=== PATIENT | male | born 1980 | race Caucasian/White ===

== ENCOUNTER 2017-11-18 11:16 | Emergency (ER) | payer OTHER ==
[~2017-11-18] VITALS: Ht 175.3 cm; Wt 60.0 kg
[~2017-11-18 11:16] MED LIST: NO HOME MEDS
[2017-11-18 12:13] LABS: CLARITY,URINE CLOUDY (Clear); GLUCOSE, URINE NEGATIVE (Neg); KETONES,URINE NEGATIVE (Neg); LEUKOCYTE ESTERASE ,URINE NEGATIVE (Neg); NITRITES, URINE NEGATIVE (Neg); OCCULT BLOOD,URINE LARGE (Neg); PROTEIN,URINE 30 mg/dl (Neg); UROBILINOGEN,URINE 0.2 E.U/dL (0.2-1.0)
[2017-11-18 12:15] LABS: COLOR,URINE Dark Yellow (Yellow); UA COLLECTION TYPE CLN CATCH MIDSTREAM
[2017-11-18] MEDS ORDERED: ketorolac trometh inj. 60 MG/2 ML VIAL IM ONE (12:25)
[2017-11-18 12:26] LABS: BACTERIA,URINE 2+ /HPF (Neg); MUCUS STRANDS FEW /LPF (Neg); RBC,URINE TNTC /HPF (0-2); SQUAMOUS EPITHELIAL CELL,UR FEW /LPF (FEW)
[2017-11-18 12:31] VITALS: BP 124/85
[2017-11-18 13:09] LABS: MEAN PLATELET VOLUME 10.1 FL (7.4-10.4); PLATELET COUNT 165 X10'3 (140-440); WHITE BLOOD COUNT 6.9 X10'3 (4.5-11.0)
[2017-11-18 13:12] LABS: ALBUMIN 2.8 G/DL (3.4-5.0); ALKALINE PHOSPHATASE 366 IU/L (46-116); BILIRUBIN,TOTAL 1.9 MG/DL (0.1-1.0); BLOOD UREA NITROGEN 24 MG/DL (7-18); BUN/CREATININE RATIO 20.9 (5.4-32.0); CREATININE 1.15 MG/DL (0.60-1.10); LIPASE 78 U/L (73-393); TOTAL CARBON DIOXIDE 20.9 MMOL/L (24-32); eGFR 72 ML/MIN
[2017-11-18] MEDS ORDERED: HYDR-568 PO (13:19)
[2017-11-18] MEDS ORDERED: IBUP-1984 PO (13:19)
[2017-11-18 13:40] LABS: HEMATOCRIT 32.2 % (42.0-52.0); HEMOGLOBIN 11.3 g/dl (14.0-17.9); MEAN CORPUSCULAR HEMOGLOBIN 32.9 PG (27.0-31.0); MEAN CORPUSCULAR HGB CONC 35.1 % (33.0-36.5); MEAN CORPUSCULAR VOLUME 93.9 FL (78-98); RED BLOOD COUNT 3.43 X10'6 (4.70-6.10)
[2017-11-18 13:41] LABS: RED CELL DISTRIBUTION WIDTH 13.6 % (11.5-14.5)
[2017-11-18 13:52] LABS: ALANINE AMINOTRANSFERASE 111 U/L (12-78); ALBUMIN/GLOBULIN RATIO 0.9 (1.1-1.5); ANION GAP 16 (8-16); ASPARTATE AMINO TRANSFERASE 126 U/L (10-37); CHLORIDE 101 MMOL/L (99-107); GLUCOSE 103 MG/DL (70-104); POTASSIUM 4.1 MMOL/L (3.5-5.1); SODIUM 138 MMOL/L (135-145); TOTAL PROTEIN 5.8 G/DL (6.4-8.2)
[2017-11-18 17:44] LABS: TOTAL CELLS COUNTED 100
[2017-11-18 17:46] LABS: PLATELET ESTIMATE NORMAL
== END 2017-11-18 14:07 | disposition home or self-care (01) ==
LOC: ER 11:16
DX: N20.0 Calculus of kidney (principal); Z79.899 Other long term (current) drug therapy
CPT/HCPCS: 36415; 74176; 80053; 81001; 83690; 85025; 87088; 96372; 99285; J1885

== ENCOUNTER 2023-10-16 15:26 | Emergency (ER) | payer BC, OTHER ==
[~2023-10-16] VITALS: Ht 172.7 cm; Wt 58.1 kg
[2023-10-16 15:45] LABS: BILIRUBIN,URINE SMALL (Neg); CLARITY,URINE SLIGHTLY CLOUDY (Clear); COLOR,URINE YELLOW (Yellow); GLUCOSE, URINE NEGATIVE (Neg); KETONES,URINE TRACE mg/dl (Neg); LEUKOCYTE ESTERASE ,URINE NEGATIVE (Neg); NITRITES, URINE NEGATIVE (Neg); OCCULT BLOOD,URINE LARGE (Neg); PROTEIN,URINE 30 mg/dl (Neg); UROBILINOGEN,URINE 0.2 E.U/dL (0.2-1.0)
[2023-10-16 15:51] LABS: BACTERIA,URINE FEW /HPF (Neg); MUCUS STRANDS FEW /LPF (Neg); RBC,URINE TNTC /HPF (0-2); SQUAMOUS EPITHELIAL CELL,UR FEW /LPF (FEW); UA COLLECTION TYPE CLN CATCH MIDSTREAM
[2023-10-16 16:13] LABS: BASOPHILS # (AUTO) 0.1 X10'3 (0-0.2); BASOPHILS % (AUTO) 0.8 % (0-1); EOSINOPHILS % (AUTO) 0.2 % (0-6); HEMOGLOBIN 14.2 g/dl (14.0-17.9); LYMPHOCYTES # (AUTO) 0.9 X10'3 (1.1-4.8); LYMPHOCYTES % (AUTO) 6.8 % (21-51); MEAN CORPUSCULAR HEMOGLOBIN 33.9 PG (27.0-31.0); MEAN CORPUSCULAR HGB CONC 34.6 g/dL (33.0-36.5); MEAN CORPUSCULAR VOLUME 97.9 FL (78-98); MEAN PLATELET VOLUME 10.9 FL (7.4-10.4); MONOCYTES # (AUTO) 0.6 X10'3 (0-0.9); NEUTROPHILS # (AUTO) 11.2 X10'3 (1.8-7.7); NEUTROPHILS % (AUTO) 87.2 % (42-75); PLATELET COUNT 133 X10'3 (140-440); RED BLOOD COUNT 4.19 X10'6 (4.70-6.10); RED CELL DISTRIBUTION WIDTH 12.9 % (11.5-14.5); WHITE BLOOD COUNT 12.8 X10'3 (4.5-11.0)
[2023-10-16 16:22] LABS: ALANINE AMINOTRANSFERASE 31 U/L (12-78); ALBUMIN/GLOBULIN RATIO 1.5 (1.1-1.5); ALKALINE PHOSPHATASE 101 IU/L (46-116); ANION GAP 10 (8-16); ASPARTATE AMINO TRANSFERASE 24 U/L (10-37); BILIRUBIN,TOTAL 0.5 MG/DL (0.1-1.0); BLOOD UREA NITROGEN 11 MG/DL (7-18); BUN/CREATININE RATIO 10.6 (10.0-20.0); CALCIUM 8.7 MG/DL (8.5-10.1); CHLORIDE 103 MMOL/L (99-107); CREATININE 1.04 MG/DL (0.60-1.10); GLUCOSE 101 MG/DL (70-104); LIPASE 26 U/L (16-77); POTASSIUM 3.4 MMOL/L (3.5-5.1); SODIUM 138 MMOL/L (135-145); TOTAL PROTEIN 6.7 G/DL (6.4-8.2); eCRCL 77 ML/MIN; eGFR 79 ML/MIN
[2023-10-16] MEDS: tamsulosin 0.4mg capsule PO ONE (17:35)
[2023-10-16] MEDS: ketorolac trometh 30MG/ML vial 30 MG/ML VIAL IV ONE (17:35)
[2023-10-16] MEDS: normal saline 1000ml 1,000 ML IV ONE (17:43)
[2023-10-16] MEDS ORDERED: ONDA-103 PO (17:45)
[2023-10-16] MEDS ORDERED: HYDR-3972 PO (17:45)
[2023-10-16] MEDS ORDERED: FLO0.4C PO (17:45)
[2023-10-16] MEDS ORDERED: IBUP-1986 PO (17:45)
[2023-10-16] MEDS: ketorolac trometh 15mg/ml vial 15 MG/ML ML IV ONE (18:55)
[2023-10-16] MEDS: HYDROcodone/acetaminophen 10/325mg tab PO ONE (18:56)
[2023-10-16 19:12] VITALS: BP 135/90; PULSE 67; RESP 14; TEMP 98.5; O2SAT 98
[2023-10-17] MEDS ORDERED: SULF1TAB49 PO (10:33)
--- NOTE | 2023-10-18 11:20 | NUR ---
PT CALLED STATING THAT THE RX HE RECEIVED ON 10/16/23 WAS SENT TO [facility]; HOWEVER, [facility] SYSTEM WAS DOWN AND THE RX x5 WAS NOT RECEIVED. PT'S ABX AND IBUPROFEN WAS ELECTRONICALLY SENT TO [facility] [address] BUT THEY DID NOT RECEIVED THE REMAINING 3 RX. [facility] [address] WAS CALLED AND THE RX FOR FLOMAX 0.4MG; 1 PO DAILY x30 DAYS AND ZOFRAN 4 MG, 1 PO Q4HRS PRN FOR N/V FOR 5 DAYS #18 WAS CALLED IN. PT WAS TALLED AND INFORMED THAT HIS REMAINING RX WAS CALLED TO [facility] [address] REQUESTED; HOWEVER, THE NORCO 10/325MG COULD NOT BE CALLED IN DUE TO IT BEING A NARCOTIC AND THAT NARCOTICS HAVE TO BE e-TRANSMITTED, AND THAT [facility] DOES NOT CARR[facility] NORCO 10/325MG CURRENTLY. PT STATED UNDERSTANDING.
== END 2023-10-16 19:18 | disposition home or self-care (01) ==
LOC: ER 15:27
DX: N20.0 Calculus of kidney (principal); N39.0 Urinary tract infection, site not specified; Z79.1 Long term (current) use of non-steroidal anti-inflammatories (NSAID); Z79.2 Long term (current) use of antibiotics
CPT/HCPCS: 36415; 74176; 80053; 81001; 83690; 85025; 87088; 96361; 96374; 96376; 99285; J1885; J7030; 74178

== ENCOUNTER 2023-12-13 09:11 | Emergency (ER) | payer BC ==
[~2023-12-13] VITALS: Ht 172.7 cm; Wt 62.7 kg
[~2023-12-13 09:11] MED LIST changes: +FLO0.4C PO; +HYDR-3972 PO; +IBUP-1986 PO; +ONDA-103 PO; +SULF1TAB49 PO
[2023-12-13 10:46] LABS: BASOPHILS # (AUTO) 0.1 X10'3 (0-0.2); BASOPHILS % (AUTO) 0.8 % (0-1); EOSINOPHILS # (AUTO) 0.1 X10'3 (0-0.9); EOSINOPHILS % (AUTO) 2.1 % (0-6); HEMATOCRIT 43.1 % (42.0-52.0); HEMOGLOBIN 14.6 g/dl (14.0-17.9); LYMPHOCYTES # (AUTO) 1.3 X10'3 (1.1-4.8); LYMPHOCYTES % (AUTO) 19.7 % (21-51); MEAN CORPUSCULAR HGB CONC 33.9 g/dL (33.0-36.5); MEAN CORPUSCULAR VOLUME 97.4 FL (78-98); MEAN PLATELET VOLUME 10.5 FL (7.4-10.4); MONOCYTES # (AUTO) 0.5 X10'3 (0-0.9); NEUTROPHILS # (AUTO) 4.8 X10'3 (1.8-7.7); NEUTROPHILS % (AUTO) 70.4 % (42-75); PLATELET COUNT 158 X10'3 (140-440); RED BLOOD COUNT 4.43 X10'6 (4.70-6.10); RED CELL DISTRIBUTION WIDTH 12.9 % (11.5-14.5); WHITE BLOOD COUNT 6.8 X10'3 (4.5-11.0)
[2023-12-13 11:10] LABS: ALANINE AMINOTRANSFERASE 48 U/L (12-78); ALBUMIN 4.3 G/DL (3.4-5.0); ALBUMIN/GLOBULIN RATIO 1.4 (1.1-1.5); ALKALINE PHOSPHATASE 144 IU/L (46-116); ANION GAP 8 (8-16); ASPARTATE AMINO TRANSFERASE 44 U/L (10-37); BILIRUBIN,TOTAL 0.9 MG/DL (0.1-1.0); BLOOD UREA NITROGEN 13 MG/DL (7-18); BUN/CREATININE RATIO 13.3 (10.0-20.0); CALCIUM 9.3 MG/DL (8.5-10.1); CHLORIDE 103 MMOL/L (99-107); CREATININE 0.98 MG/DL (0.60-1.10); GLUCOSE 98 MG/DL (70-104); POTASSIUM 3.8 MMOL/L (3.5-5.1); SODIUM 138 MMOL/L (135-145); TOTAL CARBON DIOXIDE 27.2 MMOL/L (24-32); TOTAL PROTEIN 7.4 G/DL (6.4-8.2); eCRCL 88 ML/MIN; eGFR 84 ML/MIN
[2023-12-13 12:13] LABS: BILIRUBIN,URINE SMALL (Neg); CLARITY,URINE SLIGHTLY CLOUDY (Clear); COLOR,URINE YELLOW (Yellow); GLUCOSE, URINE NEGATIVE (Neg); KETONES,URINE TRACE mg/dl (Neg); LEUKOCYTE ESTERASE ,URINE SMALL (Neg); NITRITES, URINE NEGATIVE (Neg); OCCULT BLOOD,URINE SMALL (Neg); PROTEIN,URINE 30 mg/dl (Neg); UROBILINOGEN,URINE 0.2 E.U/dL (0.2-1.0)
[2023-12-13 12:19] LABS: UA COLLECTION TYPE CLN CATCH MIDSTREAM
[2023-12-13 12:21] LABS: MUCUS STRANDS MODERATE /LPF (Neg); SQUAMOUS EPITHELIAL CELL,UR FEW /LPF (FEW); WBC,URINE TNTC /HPF (0-4)
[2023-12-13 12:23] LABS: AMORPHOUS URATES 1+; BACTERIA,URINE 1+ /HPF (Neg)
[2023-12-13] MEDS ORDERED: PHEN-716 PO (12:35)
[2023-12-13] MEDS ORDERED: CEPH-585 PO (12:35)
[2023-12-13] MEDS: CefTRIAXone 1000mg IM Kit (w/lidocaine diluent) IM ONE (12:46)
[2023-12-13 13:08] VITALS: BP 118/79; PULSE 75; RESP 16; TEMP 99.1; O2SAT 99
== END 2023-12-13 12:52 | disposition home or self-care (01) ==
LOC: ER 09:12
DX: N39.0 Urinary tract infection, site not specified (principal); Z79.1 Long term (current) use of non-steroidal anti-inflammatories (NSAID); Z79.899 Other long term (current) drug therapy
CPT/HCPCS: 36415; 80053; 81001; 85025; 87088; 96372; 99283; J0696